=== PATIENT | female | born 1955 | race Caucasian/White ===

== ENCOUNTER → 2019-08-05 | Day surgery (SDC) | payer MEDICARE, BC | END | disposition home or self-care (01) | LOC: EDSTATUS 07:05 → MSO 07:06 | DX: Z12.11 Encounter for screening for malignant neoplasm of colon (principal); D12.3 Benign neoplasm of transverse colon; Z96.89 Presence of other specified functional implants | CPT/HCPCS: 00811; J2704; J7120 ==

== ENCOUNTER 2022-04-25 08:00 | Outpatient (RCR) | payer MEDICARE, BC | END 2022-05-23 | disposition home or self-care (01) | LOC: PT | DX: M79.603 Pain in arm, unspecified (principal) ==

== ENCOUNTER → 2024-07-15 | Outpatient (CLI) | payer MEDICARE, BC | LOC: RAD 14:20 | DX: M25.561 Pain in right knee (principal) ==